=== PATIENT | female | born 1995 | race African-American/Black ===

== ENCOUNTER 2017-05-01 01:14 | Emergency (ER) | payer SELFPAY ==
[2017-05-01] MEDS ORDERED: Ondansetron ODT TAB* 4 MG PO ONE (03:57)
[2017-05-01] MEDS ORDERED: Ondansetron ODT TAB* 4 MG ONE (03:58)
--- NOTE | 2017-05-01 05:16 | ED ---
Олег Castro Nikita, scribed for César Braun MD on 05/01/17 at 0234 . Substance Abuse/Use - HPI Summary HPI Summary: This patient is a 22 year old F presenting to ED with a chief complaint of substance abuse since earlier today. Per her friends, she was celebrating her birthday; drank too much tequila, which prompted her to vomit for an hour. She has not puked since. The patient rates the pain 0/10 in severity. Symptoms aggravated by nothing. Symptoms alleviated by nothing. - History Of Current Complaint Chief Complaint: EDSubstanceAbuse Stated Complaint: ALCOHOL CONSUMPTION Time Seen by Provider: 05/01/17 02:15 Hx Obtained From: Patient Onset/Duration of Drug/ETOH Abuse: Hours Ingestion History: Type/Name Of Drug - Tequila Overdose Characteristics: Oral Timing Of Abuse: Binge Use Character: Stuporous Aggravating Factor(s): Nothing Alleviating Factor(s): Nothing Associated Signs And Symptoms: Other: - Vomiting for an hour - Allergies/Home Medications Allergies/Adverse Reactions: Allergies Allergy/AdvReac Type Severity Reaction Status Date / Time No Known Allergies Allergy Verified 05/01/17 01:20 PMH/Surg Hx/FS Hx/Imm Hx Endocrine/Hematology History: Denies: Hx Diabetes Cardiovascular History: Denies: Hx Coronary Artery Disease, Hx Hypertension Infectious Disease History: No Infectious Disease History: Denies: Traveled Outside the [place] in Last 30 Days - Family History Known Family History: Positive: Other - Denies any FHx - Social History Alcohol Use: Weekly Substance Use Type: Reports: None Smoking Status (MU): Never Smoked Tobacco Review of Systems Negative: Fever Positive: Other - Substance abuse: ETOH (tequila) Positive: Vomiting All Other Systems Reviewed And Are Negative: Yes Physical Exam - Summary Physical Exam Summary: General: well-appearing, no pain distress Skin: warm, color reflects adequate perfusion, dry Head: normal Eyes: EOMI, LUMA ENT: normal Neck: supple, nontender Respiratory: CTA, breath sounds present Cardiovascular: RRR Abdomen: soft, nontender Bowel: present Musculoskeletal: normal, strength/ROM intact, no trauma Neurological: sensory/motor intact, A&O x3, arousal to voice, slightly stuporous Psychological: affect/mood appropriate Triage Information Reviewed: Yes Vital Signs On Initial Exam: Initial Vitals Temp Pulse Resp BP Pulse Ox 98.2 F 101 18 115/78 100 05/01/17 01:18 05/01/17 01:18 05/01/17 01:18 05/01/17 01:18 05/01/17 01:18 Vital Signs Reviewed: Yes - Nany Coma Scale Coma Scale Total: 15 Diagnostics - Vital Signs Vital Signs Temp Pulse Resp BP Pulse Ox 05/01/17 01:30 88 128/64 100 05/01/17 01:29 89 100 05/01/17 01:28 137/67 05/01/17 01:18 98.2 F 101 18 115/78 100 - Laboratory Lab Statement: Any lab studies that have been ordered have been reviewed, and results considered in the medical decision making process. Course/Dx - Course Assessment/Plan: This patient is a 22 year old F presenting to ED with a chief complaint of substance abuse since earlier today. Per her friends, she was celebrating her birthday; drank too much tequila, which prompted her to vomit for an hour. She has not puked since. The patient rates the pain 0/10 in severity. Symptoms aggravated by nothing. Symptoms alleviated by nothing. In the ED course, pt slept. Medications reviewed. - Diagnoses Provider Diagnoses: Alcohol intoxication Discharge - Discharge Plan Condition: Stable Disposition: HOME Patient Education Materials: Alcohol Intoxication (ED) Referrals: [facility] [Primary Care Provider] - Additional Instructions: FOLLOW UP WITH YOUR DOCTOR. RETURN TO THE EMERGENCY DEPARTMENT FOR ANY WORSENING OF YOUR CONDITION OR QUESTIONS OR CONCERNS. The documentation as recorded by the Олег purcell Nikita accurately reflects the service I personally performed and the decisions made by me, César Braun MD.
[2017-05-01 06:47] VITALS: BP 122/49
== END 2017-05-01 06:44 | disposition home or self-care (01) ==
LOC: EDBD → ED 01:14
DX: F10.129 Alcohol abuse with intoxication, unspecified (principal)
CPT/HCPCS: 99284; A9270-GY